=== PATIENT | male | born 1955 | race Caucasian/White ===

== ENCOUNTER 2025-05-09 11:07 | Outpatient (CLI) | payer MEDICARE, SELFPAY ==
--- OUTSIDE RECORDS SUMMARY | 2025-05-09 11:17 | XMS_ITS | Clinical Summary ---
Author Organization Healthcare Address [address] [place] [address] Care Team Providers Care Fabrication Engineer Name Role Phone nAders Lorenz MD Primary Care Provider + [phone] Allergies Active Allergy Reactions Criticality Noted Date Comments Statins Rash Low 12/13/2021 Medications polyethylene glycol (Miralax) 17 g packet Miralax Active Zinc 10 MG lozenge zinc Active cholecalciferol (Vitamin D-3) 50 MCG (1999) capsule 1 capsule. Active Multiple Vitamins-Minera ls (MULTIVITAMIN ADULT EXTRA C PO) multivitamin Active psyllium (Konsyl) 33 % powder Take by mouth 1 (one) time each day. Active Active Problems No known active problems Immunizations Immunization Administration Dates Next Due Influenza, injectable, quadrivalent 05/31/2020 Moderna COVID-19 Vaccine (Survey Research Manager) 12+ years 06/2021,10/25/2020 Pneumococcal Conjugate PCV 13 05/31/2018 Pneumococcal Polysaccharide PPV23 05/31/2020 Zoster, Recombinant 05/31/2020,05/31/2018 Social History Tobacco Use Types Packs/Day Years Used Date Smoking Tobacco: Every Day Cigarettes 1.5 56.7 Started: 1968 Smokeless Tobacco: Former Quit: 1982 Alcohol Use Standard Drinks/Week Comments Yes 0 (1 standard drink = 0.6 oz pur e alcohol) 3-4 days per week. PHQ-2 Answer Date Recorded Patient Health Questionnaire-2 Score 0 12/13/2021 CAGE ASSESSMENT Answer Date Recorded Cage unable to access Not on file 11/02/2024 Maximum number of drinks you had on a given occasion in the last month? 0 drinks 11/02/2024 How many alcoholic Beverages do you typically drink in a week? 0 - 7 per week 11/02/2024 Have you ever felt you should CUT down on your d rinking? 0 11/02/2024 Have you been ANNOYED by peo ple criticizing your drinking? 0 11/02/2024 Have you felt GUILTY about your drinking? 0 11/02/2024 Have you had a drink first t radha in the morning (EYE-CAREER CENTER ADVISOR) to steady your nerves or to get rid of a hangover? 0 11/02/2024 CAGE Questionnaire Score 0 025 Sex and Gender Information Value Date Recorded Sex Assigned at Not on file Legal Sex Male 8:38 PM EDT Gender Identity Not on file Sexual Orientation Not on file Last Filed Vital Signs Vital Sign Reading Time Taken Comments Blood Pressure 154/81 11/02/2024 4:26 PM EDT Pulse 69 11/02/2024 6:30 PM EDT Temperature 36.7 C (98 F) 11/02/2024 6:30 PM EDT Respiratory Rate 12 11/02/2024 6:30 PM EDT Oxygen Saturation 99% 11/02/2024 6:30 PM EDT Inhaled Oxygen Concentration - - Weight 79.4 kg (175 lb) 11/02/2024 4:46 PM EDT Height 172.7 cm (5' 8 ) 11/02/2024 4:46 PM EDT Body Mass Index 26.61 11/02/2024 4:46 PM EDT Plan of Treatment Health Maintenance Due Date Last Done Comments [facility]-Hepatitis C Screening 1955 [facility]Medicare Annual Wellness (AWV) 1955 [facility]-Infant/Child/Adol SDOH Screenings 1953 [facility]-Obesity Intervention 1959 [facility]- SDOH Screenings 1971 [facility]-Adult SDOH Screenings 1971 [facility]-DTaP,Tdap,and Td Vaccine s (1 - Tdap) 1972 CT Colonography 1998 Colonoscopy 1998 [facility]-DNA 1998 FIT 1998 FOBT 1998 Sigmoidoscopy 1998 [facility]-Colorectal Cancer Screening 1998 [facility]-Lung Cancer Screening 2003 [facility]-Abdominal Aortic Aneurys m (AAA) Screening 2018 [facility]-Depression Screening 12/13/2022 12/13/2021 [id number] Vaccine ( season) 2025 11/25/2020, 10/25/2020 [facility]-Influenza Vaccine (#1) 04/17/202504/15, 05/31/2020, 05/11/2017 [facility]-RSV Vaccine: 60+ Years o r (1 - 1-dose 75+ series) 2028 [facility]-Pneumococcal Vaccine: 50 + Years Completed 05/31/2020, 04/19/2020, 05/31/2018 [facility]-Zoster Vaccines Completed 05/31/2020, 05/31/2018, 05/11/2017 HPV Vaccines Aged Out No longer eligi ble based on patient's age to complete this topic [facility]-HIB Vaccines Aged Out No longer e ligible based on patient's age to complete this topic [facility]-Hepatitis A Vaccines Aged Out No longer eligible based on patient's age to complete this topic [facility]-IPV Vaccines Aged Out No longer e ligible based on patient's age to complete this topic [facility]-Rotavirus Vaccines Aged Out No lo nger eligible based on patient's age to complete this topic Insurance [employer] Care Teams Fabrication Engineer Relationship Specialty Start Date End Date Anders Lorenz MD [address] [place] [address] PCP - General 12/13/21
[2025-05-09 11:52] LABS: Hematocrit 41.2 % (42.0-52.0); Hemoglobin 14.0 g/dL (14.1-18.0); Immature Granulocytes % 0 %; Mean Corpuscular HGB Conc 34.0 g/dL (31.8-35.4); Mean Corpuscular Hemoglobin 31.9 pg (27.0-31.2); Mean Corpuscular Volume 93.8 fl (80-94); Nucleated Red Blood Cells % 0 %; Platelet Count 267 K/mm3 (142-424); Red Blood Count 4.39 M/mm3 (4.60-6.20); Red Cell Distribution Width-SD 43.0 fL; White Blood Count 5.0 K/mm3 (4.8-10.8)
[2025-05-09 19:08] LABS: Albumin Level 4.5 g/dl (3.5-5.0); Chloride 101 mmol/L (98-107); Potassium 4.4 mmoL/L (3.5-5.1); Sodium 137 mmol/L (136-145)
[2025-05-09 19:10] LABS: Blood Urea Nitrogen 16 mg/dl (9-20); Creatinine,Serum 0.80 mg/dl (0.66-1.25); Estimated Glomerular Filt Rate 95 ml/min (>60); GFR (African American) 115 ML/MIN (>60)
[2025-05-09 19:11] LABS: Alanine Aminotransferase 31 U/L (12-78); Albumin/Globulin Ratio 2.0 (1.1-1.8); Alkaline Phosphatase 71 U/L (38-126); Anion Gap 14.4 mEq/L (5-15); Aspartate Amino Transferase 46 U/L (17-59); Bilirubin,Total 0.6 mg/dl (0.2-1.3); Calcium 9.2 mg/dl (8.4-10.2); Carbon Dioxide 26 mmol/L (22.0-30.0); Globulin 2.2 g/dL (1.3-3.2); Glucose 101 mg/dl (74-100); Iron 65 ug/dL (49-181); Total Protein,Serum 6.7 g/dl (6.3-8.2)
[2025-05-09 19:20] LABS: Total Iron Binding Capacity 262 ug/dL (261-462)
[2025-05-09 19:46] LABS: Ferritin 221 ng/ml (17.9-464)
[2025-05-10 10:44] LABS: CEA 6.8 ng/mL (0.0-4.7)
== END 2025-05-09 23:59 | disposition home or self-care (01) ==
LOC: LAB 11:10
PROVIDERS: PCP Internal Medicine; Visit Provider Internal Medicine Gastroenterology
DX: K74.69 Other cirrhosis of liver (principal); B19.20 Unspecified viral hepatitis C without hepatic coma; R19.5 Other fecal abnormalities
CPT/HCPCS: 36415; 80053; 82378; 82728; 83540; 83550; 85025

== ENCOUNTER 2025-05-17 14:21 | Outpatient (CLI) | payer MEDICARE, SELFPAY ==
--- OUTSIDE RECORDS SUMMARY | 2025-05-17 14:30 | XMS_ITS | Clinical Summary ---
Author Organization Healthcare Address [address] [place] [address] Care Team Providers Care Strip Winder Name Role Phone Anders Lorenz MD Primary Care Provider + [phone] Allergies Active Allergy Reactions Criticality Noted Date [...] Influenza, injectable, quadrivalent 05/31/2020 Moderna COVID-19 Vaccine (Hearing Aid Consultant) 12+ years 06/2021,10/25/2020 Pneumococcal Conjugate PCV 13 [...] drink first t radha in the morning (EYE-SLIMER) to steady your nerves or to get [...] Health Maintenance Due Date Last Done Comments [facility]-Hepatitis C Screening 1955 [facility]-Medicare Annual Wellness (AWV) 1953 [facility]-Infant/Child/Adol SDOH Screenings 1953 [facility]-Obesity Intervention 1959 [facility]- SDOH Screenings 1971 [facility]-Adult SDOH Screenings 1971 [facility]-DTaP,Tdap,and Td Vaccine s (1 - Tdap) 1972 CT Colonography 1998 Colonoscopy 1998 FIT-DNA 1998 FIT 1998 FOBT 1998 Sigmoidoscopy 1998 [facility]-Colorectal Cancer Screening 1998 [facility]-Lung Cancer Screening 2003 [facility]-Abdominal Aortic Aneurys m (AAA) Screening 2018 [facility]-Depression Screening 12/13/2022 12/13/2021 [id number] Vaccine ( season) 2025 11/25/2020, 10/25/2020 [facility]-Influenza [...] this topic Insurance [employer] Care Teams Strip Winder Relationship Specialty Start Date End Date Anders Lorenz MD [address] [place] [address] PCP - General 12/13/21
[2025-05-17] MEDS: SODIUM CHLORIDE 0.9% 10ML SYR (RAD ONLY) 10 ML IV (14:50)
[2025-05-17] MEDS: IOPAMIDOL-370 (76%);100ML BOTTLE 75 ML IV (14:50)
--- NOTE | 2025-05-17 15:00 | CT_ITS ---
FINAL REPORT CLINICAL HISTORY: Family history of pancreatic cancer and Heme + COMPARISON: None FINDINGS: Noncontrast images demonstrate calcified gallstones in the gallbladder. No evidence of kidney stones. Postinfusion images demonstrate the lungs are clear. The liver is homogeneous. The spleen, pancreas, adrenal glands, and kidneys are unremarkable. The appendix is not visualized. Sigmoid diverticulosis is noted without evidence of diverticulitis. The urinary bladder is decompressed. Bladder wall thickening measures up to 1.5 cm. There are advanced changes of degenerative disc disease at L5-S1. IMPRESSION: Calcified gallstones. Advanced degenerative disc disease at L5-S1. Sigmoid diverticulosis without diverticulitis. Abnormal urinary bladder wall thickening may be due to nonspecific cystitis. Correlate clinically. Reviewed, Interpreted and Dictated by Tommy Lopez MD Transcribed by Alize Hart Authenticated and [facility]
== END 2025-05-17 23:59 | disposition home or self-care (01) ==
LOC: RAD 14:24
PROVIDERS: PCP Internal Medicine; Visit Provider Internal Medicine Gastroenterology
DX: K80.20 Calculus of gallbladder without cholecystitis without obstruction (principal); M51.379 Other intervertebral disc degeneration, lumbosacral region without mention of lumbar back pain or lower extremity pain; K57.30 Diverticulosis of large intestine without perforation or abscess without bleeding; R93.89 Abnormal findings on diagnostic imaging of other specified body structures; Z80.0 Family history of malignant neoplasm of digestive organs; R19.5 Other fecal abnormalities
CPT/HCPCS: 74178; Q9967